=== PATIENT | male | born 1995 | race Caucasian/White ===

== ENCOUNTER 2018-11-16 17:05 | Emergency (ER) | payer SELFPAY ==
[~2018-11-16] VITALS: Ht 177.8 cm; Wt 72.6 kg
[2018-11-16 17:20] VITALS: BP 119/70
--- NOTE | 2018-11-16 17:20 | NUR ---
ED Nurse Note: Patient walked in c/o SOB x 5 days after vaping nicotine and THC. Spo2 96% on room air in the ER. Denies any medical hx. Pt is A&O x4, V/S noted with no s/s of acute distress noted at this time. Pt contected to the clinical research monitor. IV saline running. ERMD at bedside evaluating the pt.
[2018-11-16] MEDS: Albuterol ud Inhalation HHN SCH ×2 (17:44→17:45)
[2018-11-16] MEDS: Ipratropium 0.02% Inh Soln 2.5ml UD HHN SCH ×2 (17:44→17:45)
--- NOTE | 2018-11-16 17:46 | Diagnostic Imaging Report ---
EXAM: XR Chest, 1 View CLINICAL HISTORY: COUGH TECHNIQUE: Frontal view of the chest. COMPARISON: No relevant prior studies available. FINDINGS: Lungs: Unremarkable. No consolidation. Pleural space: Unremarkable. No pneumothorax. Heart: Unremarkable. No cardiomegaly. Mediastinum: Unremarkable. Bones joints: Unremarkable. IMPRESSION: 1. No acute cardio pulmonary disease. 2. Unremarkable study.
[2018-11-16] MEDS ORDERED: PREDNISONE50 MG ORAL (18:10)
[2018-11-16] MEDS ORDERED: ALBUTEROL SULF8.5 GM INH (18:10)
--- NOTE | 2018-11-16 18:11 | Emergency Room Report ---
History of Present Illness General Chief Complaint: Dyspnea/Respdistress Source: Patient Present Illness HPI 24-year-old male presents with 5 days of shortness of breath, dyspnea after utilizing a Desiree, vaping, marijuana, and tobacco, symptoms are aggravated by smoking alleviated by not smoking severity is moderate, constant, no chest pain no nausea no vomiting, no abdominal pain patient presents for evaluation patient is worried about his lungs Allergies: Coded Allergies: No Known Allergies (Unverified , 11/16/18) Nursing Documentation-[facility] Past Medical History: No Stated History Review of Systems All Other Systems: negative except mentioned in HPI Physical Exam Vital Signs Date Time Temp Pulse Resp B/P (MAP) Pulse Ox O2 Delivery O2 Flow Rate FiO2 11/16/18 17:15 98.1 92 18 119/70 (86) 96 Room Air 11/16/18 17:39 21 Sp02 EP Interpretation: reviewed, normal General Appearance: well appearing, no apparent distress, alert Head: normocephalic, atraumatic Eyes: bilateral eye PERRL, bilateral eye EOMI ENT: uvula midline, moist mucus membranes Neck: supple, thyroid normal, supple/symm/no masses Respiratory: lungs clear, no respiratory distress, no retraction, no accessory muscle use, decreased breath sounds Cardiovascular #1: normal peripheral pulses, regular rate, rhythm, no edema, no gallop, no murmur Gastrointestinal: non tender, soft, no guarding, no rebound Musculoskeletal: normal inspection Neurologic: alert, oriented x3 Psychiatric: mood/affect normal Skin: no rash, warm/dry Medical Decision Making Diagnostic Impression: Primary Impression: Dyspnea Qualified Codes: R06.00 - Dyspnea, unspecified Additional Impressions: Marijuana use Tobacco use ER Course 23-year-old male presents with dyspnea, shortness of breath after utilizing THC and tobacco patient most likely has inhalation injury secondary to utilizing vaping, patient with reduced breath sounds bilaterally, differential diagnosis includes pneumonitis, pneumonia, bronchitis, bronchospasm Patient given breathing treatments, chest x-ray obtained, steroids given, Reevaluation at 6:08 PM, patient feels better EKG Diagnostic Results EKG Time: 17:37 EP Interpretation: NSR, rate 63, QTc 405, no acute ST elevations, normal axis Rhythm Strip Diag. Results Rhythm Strip Time: 18:09 EP Interpretation: yes Rate: 81 Rhythm: NSR, no PVC's, no ectopy Chest X-Ray Diagnostic Results Chest X-Ray Diagnostic Results : Chest X-Ray Ordered: Yes # of Views/Limited/Complete: 1 View Indication: Shortness of Breath EP Interpretation: Yes Interpretation: no consolidation, no effusion, no pneumothorax, no acute cardiopulmonary disease Impression: No acute disease Electronically Signed by: Tomás Mclaughlin MD Last Vital Signs Date Time Temp Pulse Resp B/P (MAP) Pulse Ox O2 Delivery O2 Flow Rate FiO2 11/16/18 17:39 79 20 99 Room Air 21 75 20 98 11/16/18 17:20 98.1 119/70 Disposition: HOME, SELF-CARE Condition: Stable Scripts Prednisone* (PREDNISONE*) 50 Mg Tablet 50 MG ORAL DAILY, #4 TAB 0 Refills Prov: Tomás Mclaughlin MD 11/16/18 Albuterol Sulfate* (ALBUTEROL SULFATE MDI*) 8.5 Gm Hfa.aer.ad 2 PUFF INH Q4H PRN for cough/wheezing, #1 EA 0 Refills Prov: Tomás Mclaughlin MD 11/16/18 Referrals: NOT CHOSEN IPA/,REFERRING (PCP) [facility] Roddy Castillo. [facility] Patient Instructions: Bronchospasm, Adult, [id number], Shortness of Breath, [id number] Additional Instructions: The patient was provided with discharge instructions, notified to follow-up with a primary care doctor and or specialist in the next 24-48 hours, and to return to the ED if they have worsening of their symptoms. Please note that this report is being documented using [employer] technology. This can lead to erroneous entry secondary to incorrect interpretation by the dictating instrument. PLEASE DO NOT SMOKE ANYMORE Tomás Mclaughlin MD Nov 16, 2018 18:11
[2018-11-16 18:35] VITALS: BP 125/65
--- NOTE | 2018-11-16 18:38 | NUR ---
ER DISCHARGE NOTE: Patient is cleared to be discharged per ERMD, pt is aox4, on room air, with stable vital signs. pt was given dc and prescription instructions, pt was able to verbalize understanding, pt id band and iv site removed without complications. pt is able to ambulate with steady gait. pt took all belongings.
--- NOTE | 2018-11-17 17:18 | Cardiology Report ---
APPROVED REPORT EKG Measurement Heart [id number] ID [id number] Normal sinus rhythm Normal ECG
== END 2018-11-16 18:38 | disposition home or self-care (01) ==
LOC: EMR 17:45
DX: R06.00 Dyspnea, unspecified (principal); F12.90 Cannabis use, unspecified, uncomplicated; Z72.0 Tobacco use
CPT/HCPCS: 71045; 93005; 94640; 94664; 96360; 99284; J7512